=== PATIENT | male | born 1970 | race Caucasian/White ===

== ENCOUNTER → 2016-12-12 | Outpatient (CLI) | payer OTHER | LOC: M OUTALCOH 13:41 | PROVIDERS: ATTEND Psychiatry & Neurology Psychiatry | DX: Z13.9 Encounter for screening, unspecified (principal); Z03.89 Encounter for observation for other suspected diseases and conditions ruled out ==

== ENCOUNTER 2017-02-16 16:32 | Emergency (ER) | payer OTHER ==
[~2017-02-16] VITALS: Ht 165.1 cm; Wt 59.4 kg
[2017-02-16 16:32] VITALS: BP 123/83
[2017-02-16] MEDS ORDERED: ACET30TAB PO (17:59)
[2017-02-16] MEDS ORDERED: PRED20TA PO (17:59)
[2017-02-16] MEDS ORDERED: CLEO300C2 PO (17:59)
== END 2017-02-16 18:40 | disposition home or self-care (01) ==
LOC: M ED 17:56
DX: J02.9 Acute pharyngitis, unspecified (principal); R05 Cough; J44.9 Chronic obstructive pulmonary disease, unspecified; F17.210 Nicotine dependence, cigarettes, uncomplicated

== ENCOUNTER → 2022-09-05 | Outpatient (CLI) | payer OTHER ==
[~2022-09-05] MED LIST: ACET-716 PO; CLEO300C2 PO; PRED20TA PO
== END ==
LOC: M RAD 16:12
PROVIDERS: ATTEND Physician Assistant Medical
DX: M25.512 Pain in left shoulder (principal)

== ENCOUNTER 2022-12-06 12:16 | Emergency (ER) | payer OTHER ==
[~2022-12-06] VITALS: Ht 165.1 cm; Wt 56.7 kg
[2022-12-06] MEDS ORDERED: IBUP-1114 PO (12:25)
[2022-12-06] MEDS ORDERED: KETOROLAC 60MG 2ML VIAL IM ONE (14:00)
[2022-12-06] MEDS ORDERED: NEUR300C PO (15:16)
[2022-12-06] MEDS ORDERED: NAPR-837 PO (15:16)
[2022-12-06] MEDS ORDERED: CYCL-707 PO (15:16)
[2022-12-06 15:23] VITALS: BP 147/84
== END 2022-12-06 15:22 | disposition home or self-care (01) ==
LOC: M ED 12:16
DX: M54.31 Sciatica, right side (principal); F17.200 Nicotine dependence, unspecified, uncomplicated
CPT/HCPCS: 72110; 73502; 93971; 96372; 99283; J1885

== ENCOUNTER 2024-10-27 08:09 | Emergency (ER) | payer OTHER ==
[~2024-10-27] VITALS: Ht 165.1 cm; Wt 64.0 kg
[~2024-10-27 08:09] MED LIST changes: +CYCL-707 PO; +IBUP-1114 PO; +NAPR-837 PO; +NEUR300C PO
[2024-10-27 09:15] LABS: BASO % 0.6 % (0.0-1.0); EOS # 0.2 10^3/uL (0.0-0.5); EOS % 4.1 % (0.0-3.0); LYMPH # 1.5 10^3/uL (1.5-5.0); LYMPH % 28.3 % (24.0-44.0); MEAN CORPUSCULAR HEMOGLOBIN 32.5 pg (27.0-33.0); MEAN CORPUSCULAR HGB CONC 34.8 g/dl (32.0-36.5); MEAN CORPUSCULAR VOLUME 93.5 fl (80.0-96.0); MONO # 0.8 10^3/uL (0.0-0.8); MONO % 14.1 % (2.0-8.0); NEUTROPHILS # 2.8 10^3/uL (1.5-8.5); NEUTROPHILS % 52.5 % (36.0-66.0); PLATELET COUNT, AUTOMATED 198 10^3/uL (150-450); RED BLOOD COUNT 4.92 10^6/uL (4.30-6.10); WHITE BLOOD COUNT 5.4 10^3/uL (4.0-10.0)
[2024-10-27 09:25] LABS: ALKALINE PHOSPHATASE 68 U/L (40-129); ALT/SGPT 20 U/L (7.0-40); AST/SGOT 20 U/L (<34); BILIRUBIN,DIRECT 0.1 MG/DL (<0.4); BILIRUBIN,TOTAL 0.4 MG/DL (0.3-1.2); BLOOD UREA NITROGEN 17 MG/DL (9-23); CALCIUM LEVEL 8.9 MG/DL (8.5-10.1); CARBON DIOXIDE LEVEL 34 MMOL/L (20-31); CHLORIDE LEVEL 99 MMOL/L (98-107); CREATININE FOR GFR 0.67 MG/DL (0.70-1.30); GLOMERULAR FILTRATION RATE > 60.0 (>56); GLUCOSE, FASTING 94 MG/DL (60-100); POTASSIUM SERUM 4.1 MMOL/L (3.5-5.1); SODIUM LEVEL 140 MMOL/L (136-145); TOTAL PROTEIN 7.5 G/DL (5.7-8.2)
[2024-10-27 11:38] LABS: APPEARANCE, URINE HAZY (CLEAR); BACTERIA, URINE AUTO NEGATIVE (NEGATIVE); BILIRUBIN, URINE AUTO NEGATIVE (NEGATIVE); BLOOD, URINE BLOOD NEGATIVE (NEGATIVE); COLOR, URINE AMBER (YELLOW); GLUCOSE, URINE (UA) AUTO NEGATIVE (NEGATIVE); KETONE, URINE AUTO NEGATIVE (NEGATIVE); LEUKOCYTE ESTERASE, URINE AUTO NEGATIVE (NEGATIVE); MUCUS, URINE LARGE (NEGATIVE); NITRITE, URINE AUTO NEGATIVE (NEGATIVE); PROTEIN, URINE AUTO 1+ mg/dL (NEGATIVE); RBC, URINE AUTO 1 /HPF (0-3); SPECIFIC GRAVITY URINE AUTO 1.029 (1.002-1.035); SQUAMOUS EPITHELIAL CELL UR AU 0 /HPF (0-6); UROBILINOGEN, URINE AUTO 0.2 mg/dL (0.0-2.0); WBC, URINE AUTO 1 /HPF (0-3)
[2024-10-27 11:47] VITALS: BP 127/88; TEMP 97.5; O2SAT 99
== END 2024-10-27 11:48 | disposition home or self-care (01) ==
LOC: M ED 08:09
DX: R10.31 Right lower quadrant pain (principal); F17.200 Nicotine dependence, unspecified, uncomplicated